=== PATIENT | female | born 1955 | race Caucasian/White ===

== ENCOUNTER 2016-12-20 12:09 | Emergency (ER) | payer SELFPAY ==
[2016-12-20 14:11] VITALS: BP 130/64
== END 2016-12-20 14:11 | disposition home or self-care (01) ==
LOC: ED 12:09
DX: S81.832A Puncture wound without foreign body, left lower leg, initial encounter (principal); W54.0XXA Bitten by dog, initial encounter; Y93.89 Activity, other specified; Y99.8 Other external cause status; Y92.89 Other specified places as the place of occurrence of the external cause
CPT/HCPCS: 90715